=== PATIENT | male | born 1955 | race Caucasian/White ===

== ENCOUNTER 2019-09-06 22:46 | Emergency (ER) | payer BC ==
[~2019-09-06] VITALS: Ht 172.7 cm; Wt 101.2 kg
[2019-09-06 22:50] VITALS: Ht 172.7 cm; Wt 101.2 kg
[2019-09-06 23:57] VITALS: BP 106/64
== END 2019-09-06 23:57 | disposition home or self-care (01) ==
LOC: ED 22:46
DX: S96.912A Strain of unspecified muscle and tendon at ankle and foot level, left foot, initial encounter (principal); X50.9XXA Other and unspecified overexertion or strenuous movements or postures, initial encounter; Y93.89 Activity, other specified; Y92.89 Other specified places as the place of occurrence of the external cause; Y99.8 Other external cause status